=== PATIENT | female | born 2005 | race Caucasian/White ===

== ENCOUNTER 2023-08-20 12:17 | Emergency (ER) | payer OTHER, BC ==
[~2023-08-20] VITALS: Ht 162.6 cm; Wt 54.0 kg
[2023-08-20 12:30] VITALS: TEMP 97.7
[2023-08-20 14:27] VITALS: BP 114/80; PULSE 71; RESP 14; O2SAT 100
== END 2023-08-20 14:29 | disposition home or self-care (01) ==
LOC: ER 12:17
DX: S13.4XXA Sprain of ligaments of cervical spine, initial encounter (principal); S90.02XA Contusion of left ankle, initial encounter; Z88.8 Allergy status to other drugs, medicaments and biological substances; V49.88XA Car occupant (driver) (passenger) injured in other specified transport accidents, initial encounter; Y93.89 Activity, other specified; Y92.89 Other specified places as the place of occurrence of the external cause; Y99.8 Other external cause status
CPT/HCPCS: 72125; 73610; 99284; L0172